=== PATIENT | female | born 1970 | race African-American/Black ===

== ENCOUNTER 2017-04-27 21:34 | Emergency (ER) | payer SELFPAY ==
[~2017-04-27] VITALS: Ht 162.6 cm; Wt 82.9 kg
[2017-04-28 00:41] VITALS: BP 122/87
== END 2017-04-28 00:41 | disposition home or self-care (01) ==
LOC: EME 21:34
DX: K22.2 Esophageal obstruction (principal); Z98.84 Bariatric surgery status
CPT/HCPCS: 70360; 99281; 99284

== ENCOUNTER 2018-04-22 16:49 | Inpatient (IN) | payer OTHER ==
[~2018-04-22] VITALS: Ht 160 cm; Wt 78.2 kg
[2018-04-22 19:04] LABS: CHLORIDE 102 mEq/L (99-109)
[2018-04-22 19:05] LABS: SODIUM 138 mEq/L (136-147)
[2018-04-22 19:06] LABS: GLUCOSE 74 mg/dL (70-99)
[2018-04-22 19:10] LABS: CREATININE 0.8 mg/dL (0.6-1.3); GFR ESTIMATE (CALCULATED) > 59 mL/min/; HEMATOCRIT 16.8 % (36.0-46.0); MCH 16.1 PG (29.0-34.0); MCHC 25.6 G/DL (30.0-36.0); MCV 62.9 FL (83-99); NRBC (%) 0.6 /100 WBC (0-0); RBC DIS.WIDTH-CV 32.9 % (11.8-14.6); RBC DIS.WIDTH-SD 71.2 % (39-53); RED BLOOD COUNT 2.67 M/uL (3.80-5.20); WHITE BLOOD COUNT 9.3 K/uL (4.1-10.2)
[2018-04-22 19:11] LABS: HEMOGLOBIN 4.3 G/DL (11.9-15.5); UREA NITROGEN (BUN) 7 mg/dL (9-23)
[2018-04-22 19:35] LABS: QUANTITATIVE HCG < 4.0 MIU/ML
[2018-04-22] MEDS ORDERED: SLEEP AID25 M1 PO (19:48)
[2018-04-22] MEDS ORDERED: TYLENOL EXTRA500 MG PO (19:48)
[2018-04-22] MEDS ORDERED: TYLENOL PM EX-1 EACH PO (19:48)
[2018-04-22] MEDS ORDERED: BENADRYL ALLERG25 MG PO (19:49)
[2018-04-22 20:42] VITALS: BP 129/77
[2018-04-22 20:50] VITALS: BP 125/74
[2018-04-22 21:03] LABS: PLATELET COUNT 1312 K/uL (156-360)
[2018-04-22 21:21] VITALS: BP 142/104
[2018-04-22 22:15] VITALS: BP 129/74
[2018-04-22 22:40] LABS: TROP-I INTERPRETATION NEGATIVE; TROPONIN-I < 0.01 ng/mL (0.0-0.30)
[2018-04-22 22:50] LABS: TRANSFERRIN (TIBC) 388.2 mg/dL (215-380)
[2018-04-22 23:02] LABS: FERRITIN 3 NG/ML (10-291)
[2018-04-22 23:06] LABS: IRON < 10 MCG/DL (35-150); TRANSFERRIN SATUR. 3 % (20-55)
[2018-04-22 23:54] VITALS: BP 131/74
[2018-04-23] VITALS (18 sets, daily range): BP systolic 113–154; BP diastolic 61–90
[2018-04-23 01:59] LABS: APPEARANCE CLEAR ((CLEAR)); BILIRUBIN NEGATIVE; BLOOD NEGATIVE; COLOR YELLOW ((YELLOW)); GLUCOSE (STRIP) NEGATIVE; KETONES 5; LEUKOCYTES TRACE; NITRITE POSITIVE; PROTEIN (STRIP) NEGATIVE; SPECIFIC GRAVITY 1.014 (1.000-1.030); UROBILINOGEN 0.2 MG/DL (0.2-1.0)
[2018-04-23 02:23] LABS: BACTERIA RARE /HPF; EPITHELIAL CELLS RARE /HPF; MUCUS TRACE /LPF; RED BLOOD CELLS 0-5 /HPF (0-5); UCUL ADDED? YES
[2018-04-23 03:54] LABS: HEMATOCRIT 21.9 % (36.0-46.0); MCHC 30.1 G/DL (30.0-36.0); NRBC (%) 1.8 /100 WBC (0-0); RBC DIS.WIDTH-CV 31.4 % (11.8-14.6); RBC DIS.WIDTH-SD 75.3 % (39-53); WHITE BLOOD COUNT 8.3 K/uL (4.1-10.2)
[2018-04-23 03:56] LABS: HEMOGLOBIN 6.6 G/DL (11.9-15.5); MCH 20.5 PG (29.0-34.0); RED BLOOD COUNT 3.22 M/uL (3.80-5.20)
[2018-04-23 04:11] LABS: TROP-I INTERPRETATION NEGATIVE; TROPONIN-I < 0.01 ng/mL (0.0-0.30)
[2018-04-23 04:57] LABS: PLAT.SUFFICIENCY INCREASED; PLATELET COUNT 1169 K/uL (156-360)
[2018-04-23 07:59] LABS: FOLIC ACID (FOLATE) 7.8 NG/ML (5.0-22.0)
[2018-04-23 09:45] LABS: TROP-I INTERPRETATION NEGATIVE; TROPONIN-I < 0.01 ng/mL (0.0-0.30)
[2018-04-23 14:49] LABS: HEMATOCRIT 32.1 % (36.0-46.0); MCH 22.4 PG (29.0-34.0); MCHC 30.2 G/DL (30.0-36.0); NRBC (%) 2.2 /100 WBC (0-0); RBC DIS.WIDTH-CV 29.9 % (11.8-14.6); WHITE BLOOD COUNT 8.1 K/uL (4.1-10.2)
[2018-04-23 15:17] LABS: HEMOGLOBIN 9.7 G/DL (11.9-15.5); RED BLOOD COUNT 4.34 M/uL (3.80-5.20)
[2018-04-23 16:30] LABS: PLATELET COUNT 995 K/uL (156-360)
[2018-04-23 22:56] LABS: HEMATOCRIT 34.3 % (36.0-46.0); HEMOGLOBIN 10.6 G/DL (11.9-15.5); MCH 23.1 PG (29.0-34.0); MCHC 30.9 G/DL (30.0-36.0); MCV 74.7 FL (83-99); NRBC (%) 1.9 /100 WBC (0-0); RBC DIS.WIDTH-CV 30.1 % (11.8-14.6); RED BLOOD COUNT 4.59 M/uL (3.80-5.20); WHITE BLOOD COUNT 10.6 K/uL (4.1-10.2)
[2018-04-24] VITALS (7 sets, daily range): BP systolic 122–136; BP diastolic 67–84
[2018-04-24 00:27] LABS: PLAT.SUFFICIENCY INCREASED
[2018-04-24 00:30] LABS: PLATELET COUNT 1044 K/uL (156-360)
[2018-04-24 06:58] LABS: ALBUMIN 3.1 G/DL (3.2-4.8); ALKALINE PHOSPHATASE 62 IU/L (3-129); ALT (GPT) 10 IU/L (3-49); AST (GOT) 17 IU/L (2-34); CHLORIDE 107 MEQ/L (99-109); CREATININE 0.6 MG/DL (0.6-1.3); GFR ESTIMATE (CALCULATED) > 59 mL/min/; GLUCOSE 88 mg/dL (70-99); POTASSIUM 4.3 MEQ/L (3.7-5.4); SODIUM 137 MEQ/L (136-147); TOTAL BILIRUBIN 0.4 MG/DL (0.0-1.0); UREA NITROGEN (BUN) 3 mg/dL (9-23)
[2018-04-24 07:53] LABS: BASOPHIL (%) 0.5 % (0-1); BASOPHIL COUNT 0.1 K/uL (0-0.1); EOSINOPHIL (%) 0.7 % (0-5); EOSINOPHIL COUNT 0.1 K/uL (0-0.3); HEMATOCRIT 30.5 % (36.0-46.0); HEMOGLOBIN 9.2 G/DL (11.9-15.5); IMM.RETIC FRACTION 12.1 % (3-19); IMMATURE GRANULOCYTE (%) 0.5 % (0.0-0.7); LYMPHOCYTE (%) 17.1 % (15-42); LYMPHOCYTE COUNT 1.7 K/uL (1.0-2.8); MCH 22.4 PG (29.0-34.0); MCHC 30.2 G/DL (30.0-36.0); MCV 74.4 FL (83-99); MONOCYTE COUNT 0.8 K/uL (0-0.8); NEUTROPHIL (%) 73.2 % (45-76); NEUTROPHIL COUNT 7.5 K/uL (1.8-6.4); NRBC (%) 1.5 /100 WBC (0-0); RBC DIS.WIDTH-CV 30.5 % (11.8-14.6); RBC DIS.WIDTH-SD 76.9 % (39-53); RETIC HGB EQUIVALENT 19.2 (28-36); RETICULOCYTE COUNT 2.1 % (0.5-1.8); WHITE BLOOD COUNT 10.2 K/uL (4.1-10.2)
[2018-04-24 07:54] LABS: ANISOCYTOSIS 3+; HYPOCHROMASIA 2+; MACROCYTES 1+; MICROCYTOSIS 2+; PLAT.SUFFICIENCY INCREASED; POLYCHROMASIA 2+; TARGET CELLS 1+
[2018-04-24 07:55] LABS: PLATELET COUNT 1132 K/uL (156-360)
[2018-04-25 04:23] VITALS: BP 128/75
[2018-04-25 07:35] VITALS: BP 134/80
[2018-04-25 09:18] LABS: HEMOGLOBIN 9.7 G/DL (11.9-15.5); MCH 22.7 PG (29.0-34.0); MCHC 29.4 G/DL (30.0-36.0); MCV 77.1 FL (83-99); RBC DIS.WIDTH-CV 31.5 % (11.8-14.6); RBC DIS.WIDTH-SD 81.7 % (39-53); RED BLOOD COUNT 4.28 M/uL (3.80-5.20)
[2018-04-25 10:14] LABS: ANISOCYTOSIS 3+; BASOPHIL (%) 0.6 % (0-1); BASOPHIL COUNT 0.1 K/uL (0-0.1); EOSINOPHIL (%) 1.8 % (0-5); EOSINOPHIL COUNT 0.2 K/uL (0-0.3); HYPOCHROMASIA 2+; IMMATURE GRANULOCYTE (%) 0.3 % (0.0-0.7); LYMPHOCYTE (%) 26.2 % (15-42); LYMPHOCYTE COUNT 2.4 K/uL (1.0-2.8); MACROCYTES 1+; MICROCYTOSIS 2+; MONOCYTE (%) 8.1 % (3-12); MONOCYTE COUNT 0.7 K/uL (0-0.8); NEUTROPHIL COUNT 5.6 K/uL (1.8-6.4); PLAT.SUFFICIENCY INCREASED; PLATELET COUNT 1601 K/uL (156-360); POIKILOCYTOSIS 1+; POLYCHROMASIA 2+; TARGET CELLS 1+
[2018-04-25 11:50] VITALS: BP 130/80
[2018-04-25 16:26] VITALS: BP 132/81
[2018-04-25 21:15] VITALS: BP 139/85
[2018-04-25 23:12] LABS: INTER. NORMALIZED RATIO 1.1
[2018-04-25 23:15] LABS: PTT 30.7 SEC (25-37)
[2018-04-25 23:18] VITALS: BP 146/94
[2018-04-26 03:27] VITALS: BP 131/75
[2018-04-26 07:32] VITALS: BP 126/68
[2018-04-26 12:18] VITALS: BP 128/66
[2018-04-26 14:07] LABS: ANISOCYTOSIS 2+; EOSINOPHILS 2.6 % (0-5.0); HYPOCHROMASIA 2+; LYMPHOCYTES 22.1 % (15.0-45.0); MACROCYTES 2+; MICROCYTOSIS 1+; MONOCYTES 1.8 % (0-9.0); POIKILOCYTOSIS 2+; POLYCHROMASIA 1+; SEG.NEUTROPHILS 73.5 % (46.0-76.0)
[2018-04-26 14:08] LABS: PLAT.SUFFICIENCY INCREASED; SPHEROCYTES 2+
[2018-04-26 16:23] VITALS: BP 130/77
[2018-04-26] MEDS ORDERED: HYDREA500 MG PO (16:24)
[2018-04-26] MEDS ORDERED: PANTOPRAZOLE SO40 MG PO (16:25)
[2018-04-26] MEDS ORDERED: CYANOCOBAL1000 MCG/2 IM (16:26)
[2018-04-29 12:51] LABS: NUMBER OF MARKERS 22; SPECIMEN TYPE BONE MARROW; SPECIMEN VIABILITY 82
[2018-04-30 17:54] LABS: JAK2 RESULT BONE MARROW NOT DETECTED
[2018-04-30 18:27] LABS: JAK2 EXON 13 MUTATION NOT DETECTED
[2018-05-03 09:03] LABS: JAK2 MPL S505 MUTATION NOT DETECTED; JAK2 MPL W515 MUTATION NOT DETECTED
== END 2018-04-26 18:30 | disposition home or self-care (01) | DRG 811 ==
LOC: EME 16:49 → EDOF 21:19 → 2EAST 21:19 → ENRESERV 21:34 → EDOF 22:03 → ENRESERV 22:10 → 2EAST 23:38
PROVIDERS: Anesthesiology; Internal Medicine; Physician Assistant
PROC: 30233N1 Transfusion of Nonautologous Red Blood Cells into Peripheral Vein, Percutaneous Approach (ICD-10-PCS; principal; 2018-04-22)
PROC: 0D758ZZ Dilation of Esophagus, Via Natural or Artificial Opening Endoscopic (ICD-10-PCS; 2018-04-23)
PROC: 07DR3ZX Extraction of Iliac Bone Marrow, Percutaneous Approach, Diagnostic (ICD-10-PCS; 2018-04-26)
DX: D50.9 Iron deficiency anemia, unspecified (principal); D47.3 Essential (hemorrhagic) thrombocythemia; K22.2 Esophageal obstruction; R55 Syncope and collapse; Z98.84 Bariatric surgery status; E53.8 Deficiency of other specified B group vitamins; Q39.4 Esophageal web; E66.9 Obesity, unspecified; Z68.30 Body mass index [BMI] 30.0-30.9, adult; R82.71 Bacteriuria
CPT/HCPCS: 70450; 71046; 77012; 80048; 80053; 81003; 82272; 82607; 82728; 82746; 82948; 83540; 84466; 84484; 84702; 85007; 85025; 85027; 85046; 85610; 85730; 86850; 86900; 86901; 86920; 87077; 87086; 87186; 88305; 88342 TC; 93005; 99281; 99285; J0696; J1644; J1756; J2250; J3010; J3420; J7030; J7050; P9016